=== PATIENT | male | born 1980 | race African-American/Black ===

== ENCOUNTER 2018-11-17 14:36 | Inpatient (IN) | payer SELFPAY ==
[~2018-11-17] VITALS: Ht 190.5 cm; Wt 74.8 kg
[2018-11-17] MEDS ORDERED: IV NORMAL SALINE 1000ML BAG 1,000 ML IV ONE (15:00)
[2018-11-17 15:12] LABS: BASO % 0 % (0-3); EOS # 0.2 x10^3/uL (0.0-0.7); EOS % 3 % (0-3); HEMATOCRIT 45.9 % (39.0-53.0); HEMOGLOBIN 15.8 g/dL (13.0-17.5); LYMPH # 2.8 x10^3/uL (1.0-4.8); LYMPH % 38 % (24-48); MEAN CORPUSCULAR HEMOGLOBIN 32 pg (25-35); MEAN CORPUSCULAR HGB CONC 35 g/dL (31-37); MEAN CORPUSCULAR VOLUME 93 fL (79-100); MONO # 0.7 x10^3/uL (0.0-1.1); MONO % 9 % (0-9); NEUT # 3.6 x10^3/uL (1.8-7.7); NEUT % 50 % (31-73); PLATELET COUNT 287 x10^3/uL (140-400); RED BLOOD COUNT 4.92 x10^6/uL (4.30-5.70); RED CELL DISTRIBUTION WIDTH 13.9 % (11.5-14.5); WHITE BLOOD COUNT 7.3 x10^3/uL (4.0-11.0)
--- NOTE | 2018-11-17 15:14 | PHYS DOC ---
Adult General Chief Complaint Chief Complaint: WEAKNESS/GENERALIZED HPI HPI Patient is a 37 year old male that presents with multiple complaints. The patient states he has been having left arm numbness when he wakes up in the morning after laying on his arm when he sleeps. The patient also states he's been having some left leg weakness intermittently for last month. The patient states he also had a syncopal episode on Tuesday after he worked a 12 hour shift and he was driving home that morning. Denies any pain at this time. Review of Systems Review of Systems Constitutional: Denies fever or chills [] Eyes: Denies change in visual acuity, redness, or eye pain [] HENT: Denies nasal congestion or sore throat [] Respiratory: Denies cough or shortness of breath [] Cardiovascular: No additional information not addressed in HPI [] GI: Denies abdominal pain, nausea, vomiting, bloody stools or diarrhea [] : Denies dysuria or hematuria [] Musculoskeletal: Denies back pain or joint pain [] Integument: Denies rash or skin lesions [] Neurologic: Reports Left leg weakness. Denies headache, focal weakness or sensory changes [] Endocrine: Denies polyuria or polydipsia [] Complete systems were reviewed and found to be within normal limits, except as documented in this note. Current Medications Current Medications Current Medications Medications (Trade) Dose Ordered Sig/Isabella Start Time Stop Time Status Last Admin Dose Admin Sodium Chloride 1,000 ml @ 1,000 mls/hr 1X ONCE 11/17/18 15:00 11/17/18 15:59 DC 11/17/18 15:41 1,000 MLS/HR Allergies Allergies Allergies Coded Allergies Type Severity Reaction Last Updated Verified No Known Drug Allergies 11/17/18 No Physical Exam Physical Exam Constitutional: Well developed, well nourished, no acute distress, non-toxic appearance. [] HENT: Normocephalic, atraumatic, bilateral external ears normal, oropharynx moist, no oral exudates, nose normal. [] Eyes: PERRLA, EOMI, conjunctiva normal, no discharge. [] Neck: Normal range of motion, no tenderness, supple, no stridor. [] Cardiovascular:Heart rate regular rhythm, no murmur [] Lungs & Thorax: Bilateral breath sounds clear to auscultation [] Abdomen: Bowel sounds normal, soft, no tenderness, no masses, no pulsatile mass es. [] Skin: Warm, dry, no erythema, no rash. [] Back: No tenderness, no CVA tenderness. [] Extremities: No tenderness, no cyanosis, no clubbing, ROM intact, no edema. [] Neurologic: Alert and oriented X 3, normal motor function, normal sensory function, no focal deficits noted. [] Psychologic: Affect normal, judgement normal, mood normal. [] Current Patient Data Vital Signs Vital Signs Date Time Temp Pulse Resp B/P (MAP) Pulse Ox O2 Delivery O2 Flow Rate FiO2 11/17/18 15:43 61 12 99 Lab Values Laboratory Tests Test 11/17/18 15:03 White Blood Count 7.3 x10^3/uL (4.0-11.0) Red Blood Count 4.92 x10^6/uL (4.30-5.70) Hemoglobin 15.8 g/dL (13.0-17.5) Hematocrit 45.9 % (39.0-53.0) Mean Corpuscular Volume 93 fL (79-100) Mean Corpuscular Hemoglobin 32 pg (25-35) Mean Corpuscular Hemoglobin Concent 35 g/dL (31-37) Red Cell Distribution Width 13.9 % (11.5-14.5) Platelet Count 287 x10^3/uL (140-400) Neutrophils (%) (Auto) 50 % (31-73) Lymphocytes (%) (Auto) 38 % (24-48) Monocytes (%) (Auto) 9 % (0-9) Eosinophils (%) (Auto) 3 % (0-3) Basophils (%) (Auto) 0 % (0-3) Neutrophils # (Auto) 3.6 x10^3/uL (1.8-7.7) Lymphocytes # (Auto) 2.8 x10^3/uL (1.0-4.8) Monocytes # (Auto) 0.7 x10^3/uL (0.0-1.1) Eosinophils # (Auto) 0.2 x10^3/uL (0.0-0.7) Basophils # (Auto) 0.0 x10^3/uL (0.0-0.2) Sodium Level 138 mmol/L (136-145) Potassium Level 4.4 mmol/L (3.5-5.1) Chloride Level 102 mmol/L (98-107) Carbon Dioxide Level 29 mmol/L (21-32) Anion Gap 7 (6-14) Blood Urea Nitrogen 10 mg/dL (8-26) Creatinine 1.1 mg/dL (0.7-1.3) Estimated GFR (Cockcroft-Gault) 90.2 BUN/Creatinine Ratio 9 (6-20) Glucose Level 94 mg/dL (70-99) Calcium Level 10.1 mg/dL (8.5-10.1) Magnesium Level 1.9 mg/dL (1.8-2.4) Total Bilirubin 0.4 mg/dL (0.2-1.0) Aspartate Amino Transferase (AST) 20 U/L (15-37) Alanine Aminotransferase (ALT) 28 U/L (16-63) Alkaline Phosphatase 91 U/L (46-116) Creatine Kinase 285 U/L (39-308) Troponin I Quantitative < 0.017 ng/mL (0.000-0.055) Total Protein 7.9 g/dL (6.4-8.2) Albumin 4.4 g/dL (3.4-5.0) Albumin/Globulin Ratio 1.3 (1.0-1.7) Laboratory Tests 11/17/18 15:03 Laboratory Tests 11/17/18 15:03 EKG EKG EKG interpreted by Dr. Alcantara Sinus with rate of 75, V2 has possible Type 2 Brugada, Mild ST segment changes in V3, V4 does not appear by EKG and clinical exam to be a STEMI. [] Radiology/Procedures Radiology/Procedures [][facility] [address] [place] [address] IMAGING REPORT Signed PATIENT: LESLIE SUTTON ACCOUNT: [id number] : 1980 LOCATION: ER AGE: 37 SEX: M EXAM STATUS: REG ER ORD. PHYSICIAN: FREDRICK MEAD APRN REASON: syncopal episode blood and ekg 3:15 PROCEDURE: CHEST PA & LATERAL Chest, PA and Lateral: Technique: PA and lateral views of the chest were obtained. History: Syncope. Comparison: None. Findings: The heart and pulmonary vasculature appear within normal limits. The lungs are clear. The pleural margins are clear. Impression: No acute chest process is seen. Electronically signed by: Guillermo Casillas MD (11/17/2018 3:51 PM) [facility] DICTATED and SIGNED BY: GUILLERMO CASILLAS MD DATE: 11/17/18 1551 Course & Med Decision Making Course & Med Decision Making Pertinent Labs and Imaging studies reviewed. (See chart for details) Do not appreciate any leg or arm weakness on my exam. Will work up for syncopal episode. Labs, imaging unremarkable. Concern about possible Brugada syndrome in V2. Discussed with Dr. Gomez who accepts admission for further workup. Will consult cards. Dragon Disclaimer Dragon Disclaimer This electronic medical record was generated, in whole or in part, using a voice recognition dictation system. Departure Departure Impression: Primary Impression: Syncope Additional Impression: Abnormal EKG Disposition: ADMITTED INPATIENT Admitting Physician: MARTELL Condition: STABLE Referrals: NO PCP (PCP) NIHSS Stroke Scale NIH Stroke Scale: NIH Stroke Scale Response (Comments) Value Level of Consciousness: 0 Alert/Responsive 0 LOC Questions: 0 Answers both correctly 0 LOC Commands: 0 Performs both tasks 0 Best Gaze: 0 Normal 0 Visual: 0 No visual loss 0 Facial Palsy: 0 Normal, symmetrical 0 Motor - Left Arm 0 No drift 0 Motor - Right Arm 0 No drift 0 Motor - Left Leg 0 No drift 0 Motor: Right Leg 0 No drift 0 Limb Ataxia: 0 Absent 0 Sensory: 0 No loss 0 Best Language: 0 Normal 0 Dysathria: 0 Normal 0 Extinction and Inattention: 0 Normal 0 Total 0 Problem Qualifiers Primary Impression: Syncope Syncope type: unspecified Qualified Codes: R55 - Syncope and collapse FREDRICK MEAD APRN Nov 17, 2018 15:14
[2018-11-17 15:20] LABS: CALCIUM 10.1 mg/dL (8.5-10.1); CREATININE 1.1 mg/dL (0.7-1.3); GFR 90.2; POTASSIUM 4.4 mmol/L (3.5-5.1)
[2018-11-17 15:27] LABS: ALBUMIN 4.4 g/dL (3.4-5.0); ALBUMIN/GLOBULIN RATIO 1.3 (1.0-1.7); TOTAL BILIRUBIN 0.4 mg/dL (0.2-1.0); TOTAL PROTEIN 7.9 g/dL (6.4-8.2)
--- NOTE | 2018-11-17 15:45 | EKG ---
[facility] [address] [place] [address] Test Date: 2018-11-17 Test Time: 15:14:13 Pat Name: LESLIE SUTTON Department: Room: Gender: M [employer] Supervisor: : 1980 Requested By: FREDRICK MEAD Order Number: [id number] Reading MD: Bryan Villeda MD Measurements Intervals [place] Rate: 74 P: 34 NM: 138 QRS: 24 QRSD: 76 T: 51 QT: 358 QTc: 402 Interpretive Statements SINUS RHYTHM Electronically Signed On 11-28-2018 9:42:07 CDT by Bryan Villeda MD
--- NOTE | 2018-11-17 15:54 | RAD ---
Chest, PA and Lateral: Technique: PA and lateral views of the chest were obtained. History: Syncope. Comparison: None. Findings: The heart and pulmonary vasculature appear within normal limits. The lungs are clear. The pleural margins are clear. Impression: No acute chest process is seen. Electronically signed by: Guillermo Casillas MD (11/17/2018 3:51 PM) [facility]
[2018-11-17] MEDS ORDERED: ONDANSETRON PF 4 MG/2 ML VIAL. IV PRN (16:30)
[2018-11-17] MEDS ORDERED: MORPHINE SULFATE 2 MG/ML VIAL. IV PRN (16:30)
[2018-11-17 19:13] VITALS: BP 120/87
--- NOTE | 2018-11-17 19:19 | PDOC1 ---
History and Physical Date of Admission Date of Admission DATE: 11/17/18 TIME: 19:14 History of Present Illness History of Present Illness Mr. Bashir, is a 37 year old male complains of weakness and left arm numbness when he wakes up in the morning after laying on his arm when he sleeps. He also reported that he passed out last week, and has beeen having some left leg weakness intermittently for last month . Denies any pain at this time. 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 Social History Smoke: No ALCOHOL: occassional Drugs: None Current Problem List Problem List Problems Medical Problems: (1) Abnormal EKG Status: Acute (2) Syncope Status: Acute Current Medications Current Medications Current Medications Sodium Chloride 1,000 ml @ 1,000 mls/hr 1X ONCE IV Last administered on 11/17/18at 15:41; Start 11/17/18 at 15:00; Stop 11/17/18 at 15:59; Status DC Ondansetron HCl (Zofran) 4 mg PRN Q8HRS PRN IV NAUSEA/VOMITING; Start 11/17/18 at 16:30; Stop 11/18/18 at 16:29 Morphine Sulfate (Morphine Sulfate) 2 mg PRN Q2HR PRN IV PAIN; Start 11/17/18 at 16:30; Stop 11/18/18 at 16:29 Allergies Allergies: Coded Allergies: No Known Drug Allergies (Unverified , 11/17/18) Physical Exam General: Alert, Cooperative, Other (lethargic) HEENT: Atraumatic, PERRLA Lungs: Clear to auscultation Heart: S1S2 Abdomen: Normal bowel sounds, Soft Extremities: No cyanosis, No edema, Normal pulses Skin: No rashes Neuro: Normal speech, Sensation intact Psych/Mental Status: Other (withdrawn, flat affect, slow to respond) Vitals Vitals Vital Signs Date Time Temp Pulse Resp B/P (MAP) Pulse Ox O2 Delivery O2 Flow Rate FiO2 11/17/18 16:38 62 16 99 11/17/18 14:55 97.8 135/83 (100) Room Air 97.8 Labs Labs Laboratory Tests Test 11/17/18 15:03 White Blood Count 7.3 x10^3/uL (4.0-11.0) Red Blood Count 4.92 x10^6/uL (4.30-5.70) Hemoglobin 15.8 g/dL (13.0-17.5) Hematocrit 45.9 % (39.0-53.0) Mean Corpuscular Volume 93 fL (79-100) Mean Corpuscular Hemoglobin 32 pg (25-35) Mean Corpuscular Hemoglobin Concent 35 g/dL (31-37) Red Cell Distribution Width 13.9 % (11.5-14.5) Platelet Count 287 x10^3/uL (140-400) Neutrophils (%) (Auto) 50 % (31-73) Lymphocytes (%) (Auto) 38 % (24-48) Monocytes (%) (Auto) 9 % (0-9) Eosinophils (%) (Auto) 3 % (0-3) Basophils (%) (Auto) 0 % (0-3) Neutrophils # (Auto) 3.6 x10^3/uL (1.8-7.7) Lymphocytes # (Auto) 2.8 x10^3/uL (1.0-4.8) Monocytes # (Auto) 0.7 x10^3/uL (0.0-1.1) Eosinophils # (Auto) 0.2 x10^3/uL (0.0-0.7) Basophils # (Auto) 0.0 x10^3/uL (0.0-0.2) Sodium Level 138 mmol/L (136-145) Potassium Level 4.4 mmol/L (3.5-5.1) Chloride Level 102 mmol/L (98-107) Carbon Dioxide Level 29 mmol/L (21-32) Anion Gap 7 (6-14) Blood Urea Nitrogen 10 mg/dL (8-26) Creatinine 1.1 mg/dL (0.7-1.3) Estimated GFR (Cockcroft-Gault) 90.2 BUN/Creatinine Ratio 9 (6-20) Glucose Level 94 mg/dL (70-99) Calcium Level 10.1 mg/dL (8.5-10.1) Magnesium Level 1.9 mg/dL (1.8-2.4) Total Bilirubin 0.4 mg/dL (0.2-1.0) Aspartate Amino Transf (AST/SGOT) 20 U/L (15-37) Alanine Aminotransferase (ALT/SGPT) 28 U/L (16-63) Alkaline Phosphatase 91 U/L (46-116) Creatine Kinase 285 U/L (39-308) Troponin I Quantitative < 0.017 ng/mL (0.000-0.055) Total Protein 7.9 g/dL (6.4-8.2) Albumin 4.4 g/dL (3.4-5.0) Albumin/Globulin Ratio 1.3 (1.0-1.7) Laboratory Tests Test 11/17/18 15:03 White Blood Count 7.3 x10^3/uL (4.0-11.0) Red Blood Count 4.92 x10^6/uL (4.30-5.70) Hemoglobin 15.8 g/dL (13.0-17.5) Hematocrit 45.9 % (39.0-53.0) Mean Corpuscular Volume 93 fL (79-100) Mean Corpuscular Hemoglobin 32 pg (25-35) Mean Corpuscular Hemoglobin Concent 35 g/dL (31-37) Red Cell Distribution Width 13.9 % (11.5-14.5) Platelet Count 287 x10^3/uL (140-400) Neutrophils (%) (Auto) 50 % (31-73) Lymphocytes (%) (Auto) 38 % (24-48) Monocytes (%) (Auto) 9 % (0-9) Eosinophils (%) (Auto) 3 % (0-3) Basophils (%) (Auto) 0 % (0-3) Neutrophils # (Auto) 3.6 x10^3/uL (1.8-7.7) Lymphocytes # (Auto) 2.8 x10^3/uL (1.0-4.8) Monocytes # (Auto) 0.7 x10^3/uL (0.0-1.1) Eosinophils # (Auto) 0.2 x10^3/uL (0.0-0.7) Basophils # (Auto) 0.0 x10^3/uL (0.0-0.2) Sodium Level 138 mmol/L (136-145) Potassium Level 4.4 mmol/L (3.5-5.1) Chloride Level 102 mmol/L (98-107) Carbon Dioxide Level 29 mmol/L (21-32) Anion Gap 7 (6-14) Blood Urea Nitrogen 10 mg/dL (8-26) Creatinine 1.1 mg/dL (0.7-1.3) Estimated GFR (Cockcroft-Gault) 90.2 BUN/Creatinine Ratio 9 (6-20) Glucose Level 94 mg/dL (70-99) Calcium Level 10.1 mg/dL (8.5-10.1) Magnesium Level 1.9 mg/dL (1.8-2.4) Total Bilirubin 0.4 mg/dL (0.2-1.0) Aspartate Amino Transf (AST/SGOT) 20 U/L (15-37) Alanine Aminotransferase (ALT/SGPT) 28 U/L (16-63) Alkaline Phosphatase 91 U/L (46-116) Creatine Kinase 285 U/L (39-308) Troponin I Quantitative < 0.017 ng/mL (0.000-0.055) Total Protein 7.9 g/dL (6.4-8.2) Albumin 4.4 g/dL (3.4-5.0) Albumin/Globulin Ratio 1.3 (1.0-1.7) VTE Prophylaxis Ordered VTE Prophylaxis Devices: Yes VTE Pharmacological Prophylaxi: No Assessment/Plan Assessment/Plan syncope lethargy weakness withdrawn behavior history of schizophrenia abnormal EKG, likely early repol change. concern for Brugada syndrome labs excellent, admit obs for tele MEIR REN MD Nov 17, 2018 19:19
[2018-11-17] MEDS: ENOXAPARIN 40 MG/0.4 ML SYRINGE. SQ SCH (22:08)
[2018-11-17 23:44] VITALS: BP 110/62
[2018-11-18 03:29] VITALS: BP 98/58
[2018-11-18 07:59] VITALS: BP 116/67
--- NOTE | 2018-11-18 10:56 | PDOC ---
PROGRESS NOTES History of Present Illness History of Present Illness VTE Prophylaxis Ordered VTE Prophylaxis Devices: Yes VTE Pharmacological Prophylaxi: No Assessment/Plan syncope lethargy weakness withdrawn behavior history of schizophrenia abnormal EKG, likely early repol change. concern for Brugada syndrome plan admit tele cardiology consult 37 min pt exam, chart review, > 50% of time spent with exam, chart review, pt care coordination Vitals Vitals Vital Signs Date Time Temp Pulse Resp B/P (MAP) Pulse Ox O2 Delivery O2 Flow Rate FiO2 11/18/18 08:00 Room Air 11/18/18 07:59 98.1 63 18 116/67 (83) 97 98.1 Physical Exam General: Alert, Oriented X3, Cooperative, No acute distress, Other (lethargic) Heart: Regular rate, Normal S1 Lungs: Clear Abdomen: Normal bowel sounds, Soft, No tenderness Extremities: No cyanosis, No edema, Normal pulses Skin: No rashes Labs LABS Signed PATIENT: LESLIE SUTTON ACCOUNT: [id number] : 1980 LOCATION: ER AGE: 37 SEX: M EXAM STATUS: REG ER ORD. PHYSICIAN: FREDRICK MEAD APRN REASON: syncopal episode blood and ekg 3:15 PROCEDURE: CHEST PA & LATERAL Chest, PA and Lateral: Technique: PA and lateral views of the chest were obtained. History: Syncope. Comparison: None. Findings: The heart and pulmonary vasculature appear within normal limits. The lungs are clear. The pleural margins are clear. Impression: No acute chest process is seen. Electronically signed by: Guillermo Casillas MD (11/17/2018 3:51 PM) [facility] DICTATED and SIGNED BY: GUILLERMO CASILLAS MD DATE: 11/17/18 1551 Laboratory Tests Test 11/17/18 15:03 White Blood Count 7.3 x10^3/uL (4.0-11.0) Red Blood Count 4.92 x10^6/uL (4.30-5.70) Hemoglobin 15.8 g/dL (13.0-17.5) Hematocrit 45.9 % (39.0-53.0) Mean Corpuscular Volume 93 fL (79-100) Mean Corpuscular Hemoglobin 32 pg (25-35) Mean Corpuscular Hemoglobin Concent 35 g/dL (31-37) Red Cell Distribution Width 13.9 % (11.5-14.5) Platelet Count 287 x10^3/uL (140-400) Neutrophils (%) (Auto) 50 % (31-73) Lymphocytes (%) (Auto) 38 % (24-48) Monocytes (%) (Auto) 9 % (0-9) Eosinophils (%) (Auto) 3 % (0-3) Basophils (%) (Auto) 0 % (0-3) Neutrophils # (Auto) 3.6 x10^3/uL (1.8-7.7) Lymphocytes # (Auto) 2.8 x10^3/uL (1.0-4.8) Monocytes # (Auto) 0.7 x10^3/uL (0.0-1.1) Eosinophils # (Auto) 0.2 x10^3/uL (0.0-0.7) Basophils # (Auto) 0.0 x10^3/uL (0.0-0.2) Sodium Level 138 mmol/L (136-145) Potassium Level 4.4 mmol/L (3.5-5.1) Chloride Level 102 mmol/L (98-107) Carbon Dioxide Level 29 mmol/L (21-32) Anion Gap 7 (6-14) Blood Urea Nitrogen 10 mg/dL (8-26) Creatinine 1.1 mg/dL (0.7-1.3) Estimated GFR (Cockcroft-Gault) 90.2 BUN/Creatinine Ratio 9 (6-20) Glucose Level 94 mg/dL (70-99) Calcium Level 10.1 mg/dL (8.5-10.1) Magnesium Level 1.9 mg/dL (1.8-2.4) Total Bilirubin 0.4 mg/dL (0.2-1.0) Aspartate Amino Transf (AST/SGOT) 20 U/L (15-37) Alanine Aminotransferase (ALT/SGPT) 28 U/L (16-63) Alkaline Phosphatase 91 U/L (46-116) Creatine Kinase 285 U/L (39-308) Troponin I Quantitative < 0.017 ng/mL (0.000-0.055) Total Protein 7.9 g/dL (6.4-8.2) Albumin 4.4 g/dL (3.4-5.0) Albumin/Globulin Ratio 1.3 (1.0-1.7) Assessment and Plan Assessmemt and Plan Problems Medical Problems: (1) Abnormal EKG Status: Acute (2) Syncope Status: Acute Comment Review of Relevant I have reviewed the following items geovany (where applicable) has been applied. Labs Laboratory Tests Test 11/17/18 15:03 White Blood Count 7.3 x10^3/uL (4.0-11.0) Red Blood Count 4.92 x10^6/uL (4.30-5.70) Hemoglobin 15.8 g/dL (13.0-17.5) Hematocrit 45.9 % (39.0-53.0) Mean Corpuscular Volume 93 fL (79-100) Mean Corpuscular Hemoglobin 32 pg (25-35) Mean Corpuscular Hemoglobin Concent 35 g/dL (31-37) Red Cell Distribution Width 13.9 % (11.5-14.5) Platelet Count 287 x10^3/uL (140-400) Neutrophils (%) (Auto) 50 % (31-73) Lymphocytes (%) (Auto) 38 % (24-48) Monocytes (%) (Auto) 9 % (0-9) Eosinophils (%) (Auto) 3 % (0-3) Basophils (%) (Auto) 0 % (0-3) Neutrophils # (Auto) 3.6 x10^3/uL (1.8-7.7) Lymphocytes # (Auto) 2.8 x10^3/uL (1.0-4.8) Monocytes # (Auto) 0.7 x10^3/uL (0.0-1.1) Eosinophils # (Auto) 0.2 x10^3/uL (0.0-0.7) Basophils # (Auto) 0.0 x10^3/uL (0.0-0.2) Sodium Level 138 mmol/L (136-145) Potassium Level 4.4 mmol/L (3.5-5.1) Chloride Level 102 mmol/L (98-107) Carbon Dioxide Level 29 mmol/L (21-32) Anion Gap 7 (6-14) Blood Urea Nitrogen 10 mg/dL (8-26) Creatinine 1.1 mg/dL (0.7-1.3) Estimated GFR (Cockcroft-Gault) 90.2 BUN/Creatinine Ratio 9 (6-20) Glucose Level 94 mg/dL (70-99) Calcium Level 10.1 mg/dL (8.5-10.1) Magnesium Level 1.9 mg/dL (1.8-2.4) Total Bilirubin 0.4 mg/dL (0.2-1.0) Aspartate Amino Transf (AST/SGOT) 20 U/L (15-37) Alanine Aminotransferase (ALT/SGPT) 28 U/L (16-63) Alkaline Phosphatase 91 U/L (46-116) Creatine Kinase 285 U/L (39-308) Troponin I Quantitative < 0.017 ng/mL (0.000-0.055) Total Protein 7.9 g/dL (6.4-8.2) Albumin 4.4 g/dL (3.4-5.0) Albumin/Globulin Ratio 1.3 (1.0-1.7) Laboratory Tests Test 11/17/18 15:03 White Blood Count 7.3 x10^3/uL (4.0-11.0) Red Blood Count 4.92 x10^6/uL (4.30-5.70) Hemoglobin 15.8 g/dL (13.0-17.5) Hematocrit 45.9 % (39.0-53.0) Mean Corpuscular Volume 93 fL (79-100) Mean Corpuscular Hemoglobin 32 pg (25-35) Mean Corpuscular Hemoglobin Concent 35 g/dL (31-37) Red Cell Distribution Width 13.9 % (11.5-14.5) Platelet Count 287 x10^3/uL (140-400) Neutrophils (%) (Auto) 50 % (31-73) Lymphocytes (%) (Auto) 38 % (24-48) Monocytes (%) (Auto) 9 % (0-9) Eosinophils (%) (Auto) 3 % (0-3) Basophils (%) (Auto) 0 % (0-3) Neutrophils # (Auto) 3.6 x10^3/uL (1.8-7.7) Lymphocytes # (Auto) 2.8 x10^3/uL (1.0-4.8) Monocytes # (Auto) 0.7 x10^3/uL (0.0-1.1) Eosinophils # (Auto) 0.2 x10^3/uL (0.0-0.7) Basophils # (Auto) 0.0 x10^3/uL (0.0-0.2) Sodium Level 138 mmol/L (136-145) Potassium Level 4.4 mmol/L (3.5-5.1) Chloride Level 102 mmol/L (98-107) Carbon Dioxide Level 29 mmol/L (21-32) Anion Gap 7 (6-14) Blood Urea Nitrogen 10 mg/dL (8-26) Creatinine 1.1 mg/dL (0.7-1.3) Estimated GFR (Cockcroft-Gault) 90.2 BUN/Creatinine Ratio 9 (6-20) Glucose Level 94 mg/dL (70-99) Calcium Level 10.1 mg/dL (8.5-10.1) Magnesium Level 1.9 mg/dL (1.8-2.4) Total Bilirubin 0.4 mg/dL (0.2-1.0) Aspartate Amino Transf (AST/SGOT) 20 U/L (15-37) Alanine Aminotransferase (ALT/SGPT) 28 U/L (16-63) Alkaline Phosphatase 91 U/L (46-116) Creatine Kinase 285 U/L (39-308) Troponin I Quantitative < 0.017 ng/mL (0.000-0.055) Total Protein 7.9 g/dL (6.4-8.2) Albumin 4.4 g/dL (3.4-5.0) Albumin/Globulin Ratio 1.3 (1.0-1.7) Medications Current Medications Sodium Chloride 1,000 ml @ 1,000 mls/hr 1X ONCE IV Last administered on 11/17/18at 15:41; Start 11/17/18 at 15:00; Stop 11/17/18 at 15:59; Status DC Ondansetron HCl (Zofran) 4 mg PRN Q8HRS PRN IV NAUSEA/VOMITING; Start 11/17/18 at 16:30; Stop 11/18/18 at 16:29 Morphine Sulfate (Morphine Sulfate) 2 mg PRN Q2HR PRN IV PAIN; Start 11/17/18 at 16:30; Stop 11/18/18 at 16:29 Enoxaparin Sodium (Lovenox Per Pharmacy Prophylaxis Dosing) 1 each PRN DAILY PRN MC SEE COMMENTS; Start 11/17/18 at 19:15 Enoxaparin Sodium (Lovenox 40mg Syringe) 40 mg Q24H SQ ; Start 11/17/18 at 21:00 Vitals/I & O Vital Sign - Last 24 Hours 11/17/18 11/17/18 11/17/18 11/17/18 14:55 15:43 16:38 18:10 Temp 97.8 97.8 Pulse 84 61 62 Resp 16 12 16 B/P (MAP) 135/83 (100) Pulse Ox 100 99 99 O2 Delivery Room Air Room Air 11/17/18 11/17/18 11/17/18 11/18/18 19:13 20:00 23:44 03:29 Temp 98.2 97.8 97.6 98.2 97.8 97.6 Pulse 70 66 59 Resp 20 20 18 B/P (MAP) 120/87 (98) 110/62 (78) 98/58 (71) Pulse Ox 99 97 99 O2 Delivery Room Air Room Air Room Air Room Air 11/18/18 11/18/18 07:59 08:00 Temp 98.1 98.1 Pulse 63 Resp 18 B/P (MAP) 116/67 (83) Pulse Ox 97 O2 Delivery Room Air Room Air Intake and Output 11/17/18 11/17/18 11/18/18 15:00 23:00 07:00 Intake Total 1450 ml 380 ml Output Total 450 ml Balance 1000 ml 380 ml MARTHA RUSH MD Nov 18, 2018 10:56
[2018-11-18 11:59] VITALS: BP 115/79
--- NOTE | 2018-11-18 15:32 | PDOC2 ---
CONSULT Date of Consult Date of Consult DATE: 11/18/18 TIME: 15:26 Reason for Consult Reason for Consult: Syncope Referring Physician Referring Physician: Dr. Gomez Identification/Chief Complaint Chief Complaint Weakness Source Source: Chart review, Patient History of Present Illness Reason for Visit: The patient is a 37-year-old male who was admitted yesterday through the emergency room for generalized weakness. Patient's symptoms included left arm numbness and left leg weakness. He also reported an episode of syncope after working a full 10 hour day. There are also reports of a 30 pound weight loss over the past year. Overnight his rhythm has remained stable. His EKG shows a sinus rhythm with nonspecific anterior ST elevations and an incomplete right bundle ruddy block. This is not classic for Brugada syndrome. There is no reported family history of sudden . At the present time the patient reports feeling better. He denies chest pain or shortness of breath. Past Medical History Cardiovascular: HTN Psych: Other (possible schizophrenia) Past Surgical History Past Surgical History: No pertinent history Family History Family History: Hypertension Social History No ALCOHOL: occassional Drugs: None Current Problem List Problem List Problems Medical Problems: (1) Abnormal EKG Status: Acute (2) Syncope Status: Acute Current Medications Current Medications Current Medications Sodium Chloride 1,000 ml @ 1,000 mls/hr 1X ONCE IV Last administered on 11/17/18at 15:41; Start 11/17/18 at 15:00; Stop 11/17/18 at 15:59; Status DC Ondansetron HCl (Zofran) 4 mg PRN Q8HRS PRN IV NAUSEA/VOMITING; Start 11/17/18 at 16:30; Stop 11/18/18 at 16:29 Morphine Sulfate (Morphine Sulfate) 2 mg PRN Q2HR PRN IV PAIN; Start 11/17/18 at 16:30; Stop 11/18/18 at 16:29 Enoxaparin Sodium (Lovenox Per Pharmacy Prophylaxis Dosing) 1 each PRN DAILY PRN [facility] SEE COMMENTS; Start 11/17/18 at 19:15 Enoxaparin Sodium (Lovenox 40mg Syringe) 40 mg Q24H SQ ; Start 11/17/18 at 21:00 Allergies Allergies: Coded Allergies: No Known Drug Allergies (Unverified , 11/17/18) ROS General: YES: Fatigue, Malaise Cardiovascular: yes Other (syncope) Physical Exam General: No acute distress HEENT: Atraumatic Lungs: Clear to auscultation Heart: Regular rate Abdomen: Normal bowel sounds Vitals VITALS Vital Signs Date Time Temp Pulse Resp B/P (MAP) Pulse Ox O2 Delivery O2 Flow Rate FiO2 11/18/18 11:59 97.8 64 18 115/79 (91) 99 Room Air 97.8 Labs Labs Laboratory Tests Test 11/17/18 15:03 White Blood Count 7.3 x10^3/uL (4.0-11.0) Red Blood Count 4.92 x10^6/uL (4.30-5.70) Hemoglobin 15.8 g/dL (13.0-17.5) Hematocrit 45.9 % (39.0-53.0) Mean Corpuscular Volume 93 fL (79-100) Mean Corpuscular Hemoglobin 32 pg (25-35) Mean Corpuscular Hemoglobin Concent 35 g/dL (31-37) Red Cell Distribution Width 13.9 % (11.5-14.5) Platelet Count 287 x10^3/uL (140-400) Neutrophils (%) (Auto) 50 % (31-73) Lymphocytes (%) (Auto) 38 % (24-48) Monocytes (%) (Auto) 9 % (0-9) Eosinophils (%) (Auto) 3 % (0-3) Basophils (%) (Auto) 0 % (0-3) Neutrophils # (Auto) 3.6 x10^3/uL (1.8-7.7) Lymphocytes # (Auto) 2.8 x10^3/uL (1.0-4.8) Monocytes # (Auto) 0.7 x10^3/uL (0.0-1.1) Eosinophils # (Auto) 0.2 x10^3/uL (0.0-0.7) Basophils # (Auto) 0.0 x10^3/uL (0.0-0.2) Sodium Level 138 mmol/L (136-145) Potassium Level 4.4 mmol/L (3.5-5.1) Chloride Level 102 mmol/L (98-107) Carbon Dioxide Level 29 mmol/L (21-32) Anion Gap 7 (6-14) Blood Urea Nitrogen 10 mg/dL (8-26) Creatinine 1.1 mg/dL (0.7-1.3) Estimated GFR (Cockcroft-Gault) 90.2 BUN/Creatinine Ratio 9 (6-20) Glucose Level 94 mg/dL (70-99) Calcium Level 10.1 mg/dL (8.5-10.1) Magnesium Level 1.9 mg/dL (1.8-2.4) Total Bilirubin 0.4 mg/dL (0.2-1.0) Aspartate Amino Transf (AST/SGOT) 20 U/L (15-37) Alanine Aminotransferase (ALT/SGPT) 28 U/L (16-63) Alkaline Phosphatase 91 U/L (46-116) Creatine Kinase 285 U/L (39-308) Troponin I Quantitative < 0.017 ng/mL (0.000-0.055) Total Protein 7.9 g/dL (6.4-8.2) Albumin 4.4 g/dL (3.4-5.0) Albumin/Globulin Ratio 1.3 (1.0-1.7) Images Images Chest X-ray with no acute process. Assessment/Plan Assessment/Plan 1. Generalized weakness. Patient is feeling better at this time. Workup is in progress. 2. Syncope. Rhythm has been stable overnight. EKG shows a sinus rhythm with incomplete right bundle branch block and ST segment changes anteriorly. It is not classic for Brugada syndrome. At this time will continue on monitoring. We'll check an echocardiogram. The patient will require outpatient follow-up. 3. Possible history of schizophrenia. Thank you for allowing us to participate in the care of your patient. AMBER CORTEZ MD Nov 18, 2018 15:32
[2018-11-18 15:59] VITALS: BP 109/73
[2018-11-18 19:46] VITALS: BP 119/65
[2018-11-18] MEDS: ENOXAPARIN 40 MG/0.4 ML SYRINGE. SQ SCH (20:47)
[2018-11-18 23:28] VITALS: BP 112/69
[2018-11-19] VITALS (7 sets, daily range): BP systolic 108–125; BP diastolic 65–72
[2018-11-19 05:33] LABS: CHOLESTEROL/HDL RATIO 3.1
--- NOTE | 2018-11-19 08:48 | PDOC ---
PROGRESS NOTES History of Present Illness History of Present Illness VTE Prophylaxis Ordered VTE Prophylaxis Devices: Yes VTE Pharmacological Prophylaxi: No Assessment/Plan syncope lethargy weakness withdrawn behavior history of schizophrenia abnormal EKG, likely early repol change. concern for Brugada syndrome plan admit tele cardiology consult 37 min pt exam, chart review, > 50% of time spent with exam, chart review, pt care coordination Vitals Vitals Vital Signs Date Time Temp Pulse Resp B/P (MAP) Pulse Ox O2 Delivery O2 Flow Rate FiO2 11/19/18 03:23 97.8 57 20 109/71 (84) 99 Room Air 97.8 Physical Exam General: No acute distress Heart: Regular rate Lungs: Clear Abdomen: Normal bowel sounds Extremities: No cyanosis, No edema, Normal pulses Skin: No rashes Labs LABS Laboratory Tests Test 11/19/18 04:00 11/19/18 04:30 Thyroid Stimulating Hormone (TSH) 1.206 uIU/mL (0.358-3.74) Triglycerides Level 66 mg/dL (0-150) Cholesterol Level 224 mg/dL (0-200) LDL Cholesterol, Calculated 138 mg/dL (0-100) VLDL Cholesterol, Calculated 13 mg/dL (0-40) Non-HDL Cholesterol Calculated 151 mg/dL (0-129) HDL Cholesterol 73 mg/dL (40-60) Cholesterol/HDL Ratio 3.1 Assessment and Plan Assessmemt and Plan Problems Medical Problems: (1) Abnormal EKG Status: Acute (2) Syncope Status: Acute Comment Review of Relevant I have reviewed the following items geovany (where applicable) has been applied. Labs Laboratory Tests Test 11/17/18 15:03 11/19/18 04:00 11/19/18 04:30 White Blood Count 7.3 x10^3/uL (4.0-11.0) Red Blood Count 4.92 x10^6/uL (4.30-5.70) Hemoglobin 15.8 g/dL (13.0-17.5) Hematocrit 45.9 % (39.0-53.0) Mean Corpuscular Volume 93 fL (79-100) Mean Corpuscular Hemoglobin 32 pg (25-35) Mean Corpuscular Hemoglobin Concent 35 g/dL (31-37) Red Cell Distribution Width 13.9 % (11.5-14.5) Platelet Count 287 x10^3/uL (140-400) Neutrophils (%) (Auto) 50 % (31-73) Lymphocytes (%) (Auto) 38 % (24-48) Monocytes (%) (Auto) 9 % (0-9) Eosinophils (%) (Auto) 3 % (0-3) Basophils (%) (Auto) 0 % (0-3) Neutrophils # (Auto) 3.6 x10^3/uL (1.8-7.7) Lymphocytes # (Auto) 2.8 x10^3/uL (1.0-4.8) Monocytes # (Auto) 0.7 x10^3/uL (0.0-1.1) Eosinophils # (Auto) 0.2 x10^3/uL (0.0-0.7) Basophils # (Auto) 0.0 x10^3/uL (0.0-0.2) Sodium Level 138 mmol/L (136-145) Potassium Level 4.4 mmol/L (3.5-5.1) Chloride Level 102 mmol/L (98-107) Carbon Dioxide Level 29 mmol/L (21-32) Anion Gap 7 (6-14) Blood Urea Nitrogen 10 mg/dL (8-26) Creatinine 1.1 mg/dL (0.7-1.3) Estimated GFR (Cockcroft-Gault) 90.2 BUN/Creatinine Ratio 9 (6-20) Glucose Level 94 mg/dL (70-99) Calcium Level 10.1 mg/dL (8.5-10.1) Magnesium Level 1.9 mg/dL (1.8-2.4) Total Bilirubin 0.4 mg/dL (0.2-1.0) Aspartate Amino Transf (AST/SGOT) 20 U/L (15-37) Alanine Aminotransferase (ALT/SGPT) 28 U/L (16-63) Alkaline Phosphatase 91 U/L (46-116) Creatine Kinase 285 U/L (39-308) Troponin I Quantitative < 0.017 ng/mL (0.000-0.055) Total Protein 7.9 g/dL (6.4-8.2) Albumin 4.4 g/dL (3.4-5.0) Albumin/Globulin Ratio 1.3 (1.0-1.7) Thyroid Stimulating Hormone (TSH) 1.206 uIU/mL (0.358-3.74) Triglycerides Level 66 mg/dL (0-150) Cholesterol Level 224 mg/dL (0-200) LDL Cholesterol, Calculated 138 mg/dL (0-100) VLDL Cholesterol, Calculated 13 mg/dL (0-40) Non-HDL Cholesterol Calculated 151 mg/dL (0-129) HDL Cholesterol 73 mg/dL (40-60) Cholesterol/HDL Ratio 3.1 Laboratory Tests Test 11/19/18 04:00 11/19/18 04:30 Thyroid Stimulating Hormone (TSH) 1.206 uIU/mL (0.358-3.74) Triglycerides Level 66 mg/dL (0-150) Cholesterol Level 224 mg/dL (0-200) LDL Cholesterol, Calculated 138 mg/dL (0-100) VLDL Cholesterol, Calculated 13 mg/dL (0-40) Non-HDL Cholesterol Calculated 151 mg/dL (0-129) HDL Cholesterol 73 mg/dL (40-60) Cholesterol/HDL Ratio 3.1 Medications Current Medications Sodium Chloride 1,000 ml @ 1,000 mls/hr 1X ONCE IV Last administered on 11/17/18at 15:41; Start 11/17/18 at 15:00; Stop 11/17/18 at 15:59; Status DC Ondansetron HCl (Zofran) 4 mg PRN Q8HRS PRN IV NAUSEA/VOMITING; Start 11/17/18 at 16:30; Stop 11/18/18 at 16:29; Status DC Morphine Sulfate (Morphine Sulfate) 2 mg PRN Q2HR PRN IV PAIN; Start 11/17/18 at 16:30; Stop 11/18/18 at 16:29; Status DC Enoxaparin Sodium (Lovenox Per Pharmacy Prophylaxis Dosing) 1 each PRN DAILY PRN [facility] SEE COMMENTS; Start 11/17/18 at 19:15 Enoxaparin Sodium (Lovenox 40mg Syringe) 40 mg Q24H SQ Last administered on 11/18/18at 20:47; Start 11/17/18 at 21:00 Nicotine (Nicoderm Cq 21mg) 1 patch DAILY TD ; Start 11/19/18 at 09:00; Status UNV Vitals/I & O Vital Sign - Last 24 Hours 11/18/18 11/18/18 11/18/18 11/18/18 11:59 15:59 19:46 20:00 Temp 97.8 98.0 98.0 97.8 98.0 98.0 Pulse 64 71 65 Resp 18 18 20 B/P (MAP) 115/79 (91) 109/73 (85) 119/65 (83) Pulse Ox 99 99 98 O2 Delivery Room Air Room Air Room Air Room Air 11/18/18 11/19/18 23:28 03:23 Temp 97.8 97.8 97.8 97.8 Pulse 64 57 Resp 20 20 B/P (MAP) 112/69 (83) 109/71 (84) Pulse Ox 99 99 O2 Delivery Room Air Room Air Intake and Output 11/18/18 11/18/18 11/19/18 15:00 23:00 07:00 Intake Total 200 ml 0 ml 0 ml Balance 200 ml 0 ml 0 ml MARTHA RUSH MD Nov 19, 2018 08:48
[2018-11-19] MEDS: NICOTINE 21MG PATCH. TD SCH (09:06)
--- NOTE | 2018-11-19 17:58 | PDOC ---
PROGRESS NOTES Subjective Subjective Patient seen and examined Objective Objective Vital Signs Date Time Temp Pulse Resp B/P (MAP) Pulse Ox O2 Delivery O2 Flow Rate FiO2 11/19/18 15:00 97.9 78 20 116/71 (86) 98 Room Air 97.9 Intake and Output 11/19/18 07:00 Intake Total 200 ml Balance 200 ml Intake Oral 200 ml # Voids 1 Physical Exam Abdomen: Normal bowel sounds Heart: Regular rate General: No acute distress Lungs: Clear to auscultation Assessment Assessment Problems Medical Problems: (1) Abnormal EKG Status: Acute (2) Syncope Status: Acute 1. Generalized weakness. Patient is feeling better at this time. Workup is in progress. 2. Syncope. Rhythm has been stable. EKG shows a sinus rhythm with incomplete right bundle branch block and ST segment changes anteriorly. It is not classic for Brugada syndrome. At this time will continue on monitoring. Echocardiogram pending. The patient will require outpatient follow-up. 3. Possible history of schizophrenia. Comment Review of Relevant I have reviewed the following items geovany (where applicable) has been applied. Labs Laboratory Tests Test 11/19/18 04:00 11/19/18 04:30 Thyroid Stimulating Hormone (TSH) 1.206 uIU/mL (0.358-3.74) Triglycerides Level 66 mg/dL (0-150) Cholesterol Level 224 mg/dL (0-200) LDL Cholesterol, Calculated 138 mg/dL (0-100) VLDL Cholesterol, Calculated 13 mg/dL (0-40) Non-HDL Cholesterol Calculated 151 mg/dL (0-129) HDL Cholesterol 73 mg/dL (40-60) Cholesterol/HDL Ratio 3.1 Laboratory Tests Test 11/19/18 04:00 11/19/18 04:30 Thyroid Stimulating Hormone (TSH) 1.206 uIU/mL (0.358-3.74) Triglycerides Level 66 mg/dL (0-150) Cholesterol Level 224 mg/dL (0-200) LDL Cholesterol, Calculated 138 mg/dL (0-100) VLDL Cholesterol, Calculated 13 mg/dL (0-40) Non-HDL Cholesterol Calculated 151 mg/dL (0-129) HDL Cholesterol 73 mg/dL (40-60) Cholesterol/HDL Ratio 3.1 Medications Current Medications Sodium Chloride 1,000 ml @ 1,000 mls/hr 1X ONCE IV Last administered on 11/17/18at 15:41; Start 11/17/18 at 15:00; Stop 11/17/18 at 15:59; Status DC Ondansetron HCl (Zofran) 4 mg PRN Q8HRS PRN IV NAUSEA/VOMITING; Start 11/17/18 at 16:30; Stop 11/18/18 at 16:29; Status DC Morphine Sulfate (Morphine Sulfate) 2 mg PRN Q2HR PRN IV PAIN; Start 11/17/18 at 16:30; Stop 11/18/18 at 16:29; Status DC Enoxaparin Sodium (Lovenox Per Pharmacy Prophylaxis Dosing) 1 each PRN DAILY PRN [facility] SEE COMMENTS; Start 11/17/18 at 19:15 Enoxaparin Sodium (Lovenox 40mg Syringe) 40 mg Q24H SQ Last administered on 11/18/18at 20:47; Start 11/17/18 at 21:00 Nicotine (Nicoderm Cq 21mg) 1 patch DAILY TD Last administered on 11/19/18at 09:06; Start 11/19/18 at 09:00 Vitals/I & O Vital Sign - Last 24 Hours 11/18/18 11/18/18 11/18/18 11/19/18 19:46 20:00 23:28 03:23 Temp 98.0 97.8 97.8 98.0 97.8 97.8 Pulse 65 64 57 Resp 20 20 20 B/P (MAP) 119/65 (83) 112/69 (83) 109/71 (84) Pulse Ox 98 99 99 O2 Delivery Room Air Room Air Room Air Room Air 11/19/18 11/19/18 11/19/18 11/19/18 07:00 08:00 11:00 15:00 Temp 97.8 98.2 97.9 97.8 98.2 97.9 Pulse 63 67 78 Resp 18 20 20 B/P (MAP) 108/70 (83) 125/67 (86) 116/71 (86) Pulse Ox 98 99 98 O2 Delivery Room Air Room Air Room Air Room Air Intake and Output 11/18/18 11/18/18 11/19/18 15:00 23:00 07:00 Intake Total 200 ml 0 ml 0 ml Balance 200 ml 0 ml 0 ml AMBER CORTEZ MD Nov 19, 2018 17:58
[2018-11-19] MEDS: ENOXAPARIN 40 MG/0.4 ML SYRINGE. SQ SCH (22:22)
[2018-11-20 03:22] VITALS: BP 112/66
[2018-11-20 07:33] VITALS: BP 122/75
--- NOTE | 2018-11-20 09:12 | NUR ---
NITZA consulted for mental health center info due to Schizophrenia dx, and non adherence with medication. Chart reviewed and discussed with RN. Pt lives at home with his brother Malachi: [phone]. Pt presented in the ER due to weakness and left arm numbness. Pt reported left leg weakness for last month. 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 Pt's brother is worried about pt's 30lbs weight loss this year and odd behaviors. NITZA phoned PAT team for assessment, evaluation and to connect pt with [facility]. PAT team will see pt today. NITZA will continue to follow.
[2018-11-20] MEDS: NICOTINE 21MG PATCH. TD SCH (09:45)
--- NOTE | 2018-11-20 10:49 | PDOC ---
PROGRESS NOTES History of Present Illness History of Present Illness VTE Prophylaxis Ordered VTE Prophylaxis Devices: Yes VTE Pharmacological Prophylaxi: No Assessment/Plan syncope on echo 11/20 The left ventricle is normal size. The left ventricular systolic function is normal and the ejection fraction is within normal range. The Ejection Fraction is 60-65%. There is no significant aortic valvular stenosis. Doppler and Color Flow revealed no significant aortic regurgitation. Doppler and Color Flow revealed no mitral valve regurgitation noted. Doppler and Color Flow revealed trace tricuspid regurgitation. The PA pressure was estimated at 23 mmHg. lethargy weakness withdrawn behavior history of schizophrenia abnormal EKG, likely early repol change. concern for Brugada syndrome, remains unlikely plan admit tele cardiology consult 27 min pt exam, chart review, > 50% of time spent with exam, chart review, pt care coordination Vitals Vitals Vital Signs Date Time Temp Pulse Resp B/P (MAP) Pulse Ox O2 Delivery O2 Flow Rate FiO2 11/20/18 08:00 Room Air 11/20/18 07:33 97.6 57 18 122/75 (91) 99 97.6 Physical Exam General: Alert, Oriented X3, Cooperative, No acute distress Heart: Regular rate, Normal S1 Lungs: Clear Abdomen: Normal bowel sounds, Soft Extremities: No clubbing, No cyanosis, No edema, Normal pulses Skin: No rashes Labs LABS EXAM: Two-dimensional and M-mode echocardiogram with Doppler and color Doppler. Other Information Quality : Average HR: 63bpm Rhythm : NSR INDICATION Syncope 2D DIMENSIONS RVDd 2.9 (2.9-3.5cm) Left Atrium(2D) 2.6 (1.6-4.0cm) IVSd 0.7 (0.7-1.1cm) Aortic Root(2D) 3.1 (2.0-3.7cm) LVDd 4.5 (3.9-5.9cm) LVOT Diameter 2.2 (1.8-2.4cm) PWd 0.9 (0.7-1.1cm) LVDs 2.7 (2.5-4.0cm) FS (%) 38.9 % SV 63.6 ml M-Mode DIMENSIONS Left Atrium(MM) 2.50 (2.5-4.0cm) Aortic Root 3.54 (2.2-3.7cm) Aortic Valve AoV Peak Aba. 133.6cm/s AoV VTI 23.1cm AO Peak GR. 7.1mmHg LVOT Peak Aba. 103.9cm/s AO Mean GR. 3mmHg ALESSANDRA (VMAX) 2.90cm2 ALESSANDRA (VTI) 2.80cm2 Mitral Valve MV E Velocity 85.8cm/s MV DECEL TIME 263ms MV A Velocity 44.8cm/s E/A Ratio 1.9 Pulmonary Valve PV Peak Velocity 108.9cm/s Tricuspid Valve TR P. Velocity 221cm/s RAP ESTIMATE 3mmHg TR Peak Gr. 20mmHg RVSP 23mmHg LEFT VENTRICLE The left ventricle is normal size. There is normal left ventricular wall thickness. The left ventricular systolic function is normal and the ejection fraction is within normal range. The Ejection Fraction is 60-65%. There is normal LV segmental wall motion. The left ventricular diastolic function and filling is normal for age. RIGHT VENTRICLE The right ventricle is normal size. There is normal right ventricular wall thi ckness. The right ventricular systolic function is normal. ATRIA The left atrium size is normal. The right atrium size is normal. The interatrial septum is intact with no evidence for an atrial septal defect or patent foramen ovale as noted on 2-D or Doppler imaging. AORTIC VALVE The aortic valve is normal in structure and function. The aortic valve is trileaflet. Doppler and Color Flow revealed no significant aortic regurgitation. There is no significant aortic valvular stenosis. There is no aortic valvular vegetation. MITRAL VALVE The mitral valve is normal in structure and function. There is no evidence of mitral valve prolapse. There is no mitral valve stenosis. Doppler and Color Flow revealed no mitral valve regurgitation noted. TRICUSPID VALVE The tricuspid valve is normal in structure and function. Doppler and Color Flow revealed trace tricuspid regurgitation. The PA pressure was estimated at 23 mmHg. There is no tricuspid valve prolapse or vegetation. There is no tricuspid valve stenosis. PULMONIC VALVE The pulmonic valve is not well visualized. GREAT VESSELS The aortic root is normal in size. The ascending aorta is normal in size. The IVC is normal in size and collapses >50% with inspiration. PERICARDIAL EFFUSION There is no evidence of significant pericardial effusion. Critical Notification Critical Value: No <Conclusion> The left ventricle is normal size. The left ventricular systolic function is normal and the ejection fraction is within normal range. The Ejection Fraction is 60-65%. There is no significant aortic valvular stenosis. Doppler and Color Flow revealed no significant aortic regurgitation. Doppler and Color Flow revealed no mitral valve regurgitation noted. Doppler and Color Flow revealed trace tricuspid regurgitation. The PA pressure was estimated at 23 mmHg. Signed by : Nima Villanueva MD Electronically Approved : 11/20/2018 13:04:04 Assessment and Plan Assessmemt and Plan Problems Medical Problems: (1) Abnormal EKG Status: Acute (2) Syncope Status: Acute Comment Review of Relevant I have reviewed the following items geovany (where applicable) has been applied. Labs Laboratory Tests Test 11/19/18 04:00 11/19/18 04:30 Thyroid Stimulating Hormone (TSH) 1.206 uIU/mL (0.358-3.74) Triglycerides Level 66 mg/dL (0-150) Cholesterol Level 224 mg/dL (0-200) LDL Cholesterol, Calculated 138 mg/dL (0-100) VLDL Cholesterol, Calculated 13 mg/dL (0-40) Non-HDL Cholesterol Calculated 151 mg/dL (0-129) HDL Cholesterol 73 mg/dL (40-60) Cholesterol/HDL Ratio 3.1 Medications Current Medications Sodium Chloride 1,000 ml @ 1,000 mls/hr 1X ONCE IV Last administered on 11/17/18at 15:41; Start 11/17/18 at 15:00; Stop 11/17/18 at 15:59; Status DC Ondansetron HCl (Zofran) 4 mg PRN Q8HRS PRN IV NAUSEA/VOMITING; Start 11/17/18 at 16:30; Stop 11/18/18 at 16:29; Status DC Morphine Sulfate (Morphine Sulfate) 2 mg PRN Q2HR PRN IV PAIN; Start 11/17/18 at 16:30; Stop 11/18/18 at 16:29; Status DC Enoxaparin Sodium (Lovenox Per Pharmacy Prophylaxis Dosing) 1 each PRN DAILY PRN MC SEE COMMENTS; Start 11/17/18 at 19:15 Enoxaparin Sodium (Lovenox 40mg Syringe) 40 mg Q24H SQ Last administered on 11/19/18at 22:22; Start 11/17/18 at 21:00 Nicotine (Nicoderm Cq 21mg) 1 patch DAILY TD Last administered on 11/20/18at 09:45; Start 11/19/18 at 09:00 Vitals/I & O Vital Sign - Last 24 Hours 10/6/19 10/6/19 10/6/19 10/6/19 11:00 15:00 19:42 19:43 Temp 98.2 97.9 98.3 98.2 97.9 98.3 Pulse 67 78 72 76 Resp 20 20 20 B/P (MAP) 125/67 (86) 116/71 (86) 122/65 (84) 118/71 (87) Pulse Ox 99 98 98 O2 Delivery Room Air Room Air Room Air 11/19/18 11/19/18 11/20/18 11/20/18 19:43 23:07 03:22 07:33 Temp 98.8 97.8 97.6 98.8 97.8 97.6 Pulse 82 74 60 57 Resp 18 18 B/P (MAP) 110/70 (83) 115/72 (86) 112/66 (81) 122/75 (91) Pulse Ox 97 99 99 O2 Delivery Room Air 20 Nasal Cannula 11/20/18 08:00 O2 Delivery Room Air Intake and Output 11/19/18 11/19/18 11/20/18 15:00 23:00 07:00 Intake Total 540 ml 300 ml 730 ml Balance 540 ml 300 ml 730 ml MARTHA RUSH MD Nov 20, 2018 10:49
[2018-11-20 11:00] VITALS: BP 122/69
--- NOTE | 2018-11-20 11:33 | NUR ---
SW following pt. Pt seen by PAT team and is provided with OP mental health appointment at [facility]. Pt's brother is also provided with this information. SW will be available as needed.
--- NOTE | 2018-11-20 11:43 | NUR ---
1115 Assumed care, alert, brother at bedside
--- NOTE | 2018-11-20 13:04 | CARD ---
MR#: [id number] Date of Study: 11/20/2018 Ordering Physician: AMBER VILLANUEVA, Referring Physician: AMBER VILLANUEVA, Tech: Eloina Freeman [facility] APPROVED REPORT EXAM: Two-dimensional and M-mode echocardiogram with Doppler and color Doppler. Other Information Quality : AverageHR: 63bpm Rhythm : NSR INDICATION Syncope 2D DIMENSIONS RVDd2.9 (2.9-3.5cm)Left Atrium(2D)2.6 (1.6-4.0cm) IVSd0.7 (0.7-1.1cm)Aortic Root(2D)3.1 (2.0-3.7cm) LVDd4.5 (3.9-5.9cm)LVOT Diameter2.2 (1.8-2.4cm) PWd0.9 (0.7-1.1cm)LVDs2.7 (2.5-4.0cm) FS (%) 38.9 %SV63.6 ml M-Mode DIMENSIONS Left Atrium(MM)2.50 (2.5-4.0cm)Aortic Root3.54 (2.2-3.7cm) Aortic Valve AoV Peak Aba.133.6cm/sAoV VTI23.1cm AO Peak GR.7.1mmHgLVOT Peak Aba.103.9cm/s AO Mean GR.3mmHgAVA (VMAX)2.90cm2 ALESSANDRA (VTI)2.80cm2 Mitral Valve MV E Ahgqhsrd44.8cm/sMV DECEL IMXE450vd MV A Ebposhqj46.8cm/sE/A Ratio1.9 Pulmonary Valve PV Peak Kiengyrd089.9cm/s Tricuspid Valve TR P. Tkpsisnz135wy/sRAP NJPNWGOO6jgGr TR Peak Gr.38mjJqNFHP42keBl LEFT VENTRICLE The left ventricle is normal size. There is normal left ventricular wall thickness. The left ventricu lar systolic function is normal and the ejection fraction is within normal range. The Ejection Fracti on is 60-65%. There is normal LV segmental wall motion. The left ventricular diastolic function and f illing is normal for age. RIGHT VENTRICLE The right ventricle is normal size. There is normal right ventricular wall thickness. The right ventr icular systolic function is normal. ATRIA The left atrium size is normal. The right atrium size is normal. The interatrial septum is intact wit h no evidence for an atrial septal defect or patent foramen ovale as noted on 2-D or Doppler imaging. AORTIC VALVE The aortic valve is normal in structure and function. The aortic valve is trileaflet. Doppler and Col or Flow revealed no significant aortic regurgitation. There is no significant aortic valvular stenosi s. There is no aortic valvular vegetation. MITRAL VALVE The mitral valve is normal in structure and function. There is no evidence of mitral valve prolapse. There is no mitral valve stenosis. Doppler and Color Flow revealed no mitral valve regurgitation note d. TRICUSPID VALVE The tricuspid valve is normal in structure and function. Doppler and Color Flow revealed trace tricus pid regurgitation. The PA pressure was estimated at 23 mmHg. There is no tricuspid valve prolapse or vegetation. There is no tricuspid valve stenosis. PULMONIC VALVE The pulmonic valve is not well visualized. GREAT VESSELS The aortic root is normal in size. The ascending aorta is normal in size. The IVC is normal in size a nd collapses >50% with inspiration. PERICARDIAL EFFUSION There is no evidence of significant pericardial effusion. Critical Notification Critical Value: No <Conclusion> The left ventricle is normal size. The left ventricular systolic function is normal and the ejection fraction is within normal range. The Ejection Fraction is 60-65%. There is no significant aortic valvular stenosis. Doppler and Color Flow revealed no significant aortic regurgitation. Doppler and Color Flow revealed no mitral valve regurgitation noted. Doppler and Color Flow revealed trace tricuspid regurgitation. The PA pressure was estimated at 23 mmHg. Signed by : Amber Villanueva MD Electronically Approved : 11/20/2018 13:04:04
[2018-11-20 15:15] VITALS: BP 106/73
--- NOTE | 2018-11-20 17:49 | PDOC ---
PROGRESS NOTES Subjective Subjective Patient seen and examined Objective Objective Vital Signs Date Time Temp Pulse Resp B/P (MAP) Pulse Ox O2 Delivery O2 Flow Rate FiO2 11/20/18 15:15 97.9 64 18 106/73 (84) 100 Nasal Cannula 97.9 Intake and Output 11/20/18 07:00 Intake Total 1570 ml Balance 1570 ml Intake Oral 1570 ml # Voids 4 # Bowel Movements 1 Physical Exam Abdomen: Normal bowel sounds Heart: Regular rate General: No acute distress Lungs: Clear to auscultation Assessment Assessment Problems Medical Problems: (1) Abnormal EKG Status: Acute (2) Syncope Status: Acute 1. Generalized weakness. The patient continued to slowly improve. 2. Syncope. Rhythm has been stable. EKG shows a sinus rhythm with incomplete right bundle branch block and ST segment changes anteriorly. It is not classic for Brugada syndrome. On monitor rhythm has been normal. Echocardiogram today shows normal systolic function and no significant valvular abnormalities. We'll follow-up as an outpatient. 3. Possible history of schizophrenia. Comment Review of Relevant I have reviewed the following items geovany (where applicable) has been applied. Labs Laboratory Tests Test 11/19/18 04:00 11/19/18 04:30 Thyroid Stimulating Hormone (TSH) 1.206 uIU/mL (0.358-3.74) Triglycerides Level 66 mg/dL (0-150) Cholesterol Level 224 mg/dL (0-200) LDL Cholesterol, Calculated 138 mg/dL (0-100) VLDL Cholesterol, Calculated 13 mg/dL (0-40) Non-HDL Cholesterol Calculated 151 mg/dL (0-129) HDL Cholesterol 73 mg/dL (40-60) Cholesterol/HDL Ratio 3.1 Medications Current Medications Sodium Chloride 1,000 ml @ 1,000 mls/hr 1X ONCE IV Last administered on 11/17/18at 15:41; Start 11/17/18 at 15:00; Stop 11/17/18 at 15:59; Status DC Ondansetron HCl (Zofran) 4 mg PRN Q8HRS PRN IV NAUSEA/VOMITING; Start 11/17/18 at 16:30; Stop 11/18/18 at 16:29; Status DC Morphine Sulfate (Morphine Sulfate) 2 mg PRN Q2HR PRN IV PAIN; Start 11/17/18 at 16:30; Stop 11/18/18 at 16:29; Status DC Enoxaparin Sodium (Lovenox Per Pharmacy Prophylaxis Dosing) 1 each PRN DAILY PRN MC SEE COMMENTS; Start 11/17/18 at 19:15 Enoxaparin Sodium (Lovenox 40mg Syringe) 40 mg Q24H SQ Last administered on 11/19/18at 22:22; Start 11/17/18 at 21:00 Nicotine (Nicoderm Cq 21mg) 1 patch DAILY TD Last administered on 11/20/18at 09:45; Start 11/19/18 at 09:00 Atorvastatin Calcium (Lipitor) 20 mg QHS PO ; Start 11/20/18 at 21:00 Vitals/I & O Vital Sign - Last 24 Hours 11/19/18 11/19/18 11/19/18 11/19/18 19:42 19:43 19:43 23:07 Temp 98.3 98.8 98.3 98.8 Pulse 72 76 82 74 Resp 20 18 B/P (MAP) 122/65 (84) 118/71 (87) 110/70 (83) 115/72 (86) Pulse Ox 98 97 O2 Delivery Room Air Room Air 11/20/18 11/20/18 11/20/18 11/20/18 03:22 07:33 08:00 11:00 Temp 97.8 97.6 97.9 97.8 97.6 97.9 Pulse 60 57 67 Resp 18 20 B/P (MAP) 112/66 (81) 122/75 (91) 122/69 (86) Pulse Ox 99 99 100 O2 Delivery 20 Nasal Cannula Room Air Nasal Cannula 11/20/18 15:15 Temp 97.9 97.9 Pulse 64 Resp 18 B/P (MAP) 106/73 (84) Pulse Ox 100 O2 Delivery Nasal Cannula Intake and Output 11/19/18 11/19/18 11/20/18 15:00 23:00 07:00 Intake Total 540 ml 300 ml 730 ml Balance 540 ml 300 ml 730 ml AMBER CORTEZ MD Nov 20, 2018 17:49
[2018-11-20 19:38] VITALS: BP 115/73
[2018-11-20] MEDS: ENOXAPARIN 40 MG/0.4 ML SYRINGE. SQ SCH (21:00)
[2018-11-20] MEDS ORDERED: ATORVASTATIN CALCIUM 20 MG TABLET PO SCH (21:00)
[2018-11-20 23:45] VITALS: BP 118/58
[2018-11-21 03:20] VITALS: BP 114/74
[2018-11-21 07:45] VITALS: BP 115/74
--- NOTE | 2018-11-21 07:45 | PDOC ---
PROGRESS NOTES History of Present Illness History of Present Illness VTE Prophylaxis Ordered VTE Prophylaxis Devices: Yes VTE Pharmacological Prophylaxi: No DISCHARGE DX syncope on echo 11/20 The left ventricle is normal size. The left ventricular systolic function is normal and the ejection fraction is within normal range. The Ejection Fraction is 60-65%. There is no significant aortic valvular stenosis. Doppler and Color Flow revealed no significant aortic regurgitation. Doppler and Color Flow revealed no mitral valve regurgitation noted. Doppler and Color Flow revealed trace tricuspid regurgitation. The PA pressure was estimated at 23 mmHg. lethargy weakness withdrawn behavior history of schizophrenia abnormal EKG, likely early repol change. concern for Brugada syndrome, remains unlikely plan admit tele cardiology consult D/C 11/21 25 min pt exam, chart review D/C PLANNING , > 50% of time spent with exam, chart review, pt care coordination Vitals Vitals Vital Signs Date Time Temp Pulse Resp B/P (MAP) Pulse Ox O2 Delivery O2 Flow Rate FiO2 11/21/18 03:20 98.4 57 20 114/74 (87) 97 Room Air 98.4 Physical Exam General: Alert, Oriented X3, Cooperative, No acute distress Heart: Regular rate, Normal S1 Lungs: Clear Abdomen: Normal bowel sounds Extremities: No clubbing, No cyanosis, No edema, Normal pulses Skin: No rashes Assessment and Plan Assessmemt and Plan Problems Medical Problems: (1) Abnormal EKG Status: Acute (2) Syncope Status: Acute Comment Review of Relevant I have reviewed the following items geovany (where applicable) has been applied. Medications Current Medications Sodium Chloride 1,000 ml @ 1,000 mls/hr 1X ONCE IV Last administered on 11/17/18at 15:41; Start 11/17/18 at 15:00; Stop 11/17/18 at 15:59; Status DC Ondansetron HCl (Zofran) 4 mg PRN Q8HRS PRN IV NAUSEA/VOMITING; Start 11/17/18 at 16:30; Stop 11/18/18 at 16:29; Status DC Morphine Sulfate (Morphine Sulfate) 2 mg PRN Q2HR PRN IV PAIN; Start 11/17/18 at 16:30; Stop 11/18/18 at 16:29; Status DC Enoxaparin Sodium (Lovenox Per Pharmacy Prophylaxis Dosing) 1 each PRN DAILY PRN MC SEE COMMENTS; Start 11/17/18 at 19:15 Enoxaparin Sodium (Lovenox 40mg Syringe) 40 mg Q24H SQ Last administered on 11/19/18at 22:22; Start 11/17/18 at 21:00 Nicotine (Nicoderm Cq 21mg) 1 patch DAILY TD Last administered on 11/20/18at 09:45; Start 11/19/18 at 09:00 Atorvastatin Calcium (Lipitor) 20 mg QHS PO Last administered on 11/20/18at 21:37; Start 11/20/18 at 21:00 Vitals/I & O Vital Sign - Last 24 Hours 11/20/18 11/20/18 11/20/18 11/20/18 08:00 11:00 15:15 19:38 Temp 97.9 97.9 97.9 97.9 97.9 97.9 Pulse 67 64 66 Resp 20 18 18 B/P (MAP) 122/69 (86) 106/73 (84) 115/73 (87) Pulse Ox 100 100 98 O2 Delivery Room Air Nasal Cannula Nasal Cannula Room Air 11/20/18 11/20/18 11/21/18 20:10 23:45 03:20 Temp 98.4 98.4 98.4 98.4 Pulse 63 57 Resp 18 20 B/P (MAP) 118/58 (78) 114/74 (87) Pulse Ox 98 97 O2 Delivery Room Air Room Air Room Air Intake and Output 11/20/18 11/20/18 11/21/18 15:00 23:00 07:00 Intake Total 300 ml 1570 ml 700 ml Balance 300 ml 1570 ml 700 ml MARTHA RUSH MD Nov 21, 2018 07:45
[2018-11-21] MEDS: NICOTINE 21MG PATCH. TD SCH (08:49)
[2018-11-21 11:01] VITALS: BP 119/70
--- NOTE | 2018-11-21 12:43 | PDOC3 ---
Discharge Summary Date of Admission: Nov 17, 2018 Date of Discharge: Nov 21, 2018 Follow-Up: 3-5 days Admitting Diagnosis comment: DISCHARGE DX syncope on echo 11/20 The left ventricle is normal size. The left ventricular systolic function is normal and the ejection fraction is within normal range. The Ejection Fraction is 60-65%. There is no significant aortic valvular stenosis. Doppler and Color Flow revealed no significant aortic regurgitation. Doppler and Color Flow revealed no mitral valve regurgitation noted. Doppler and Color Flow revealed trace tricuspid regurgitation. The PA pressure was estimated at 23 mmHg. lethargy weakness withdrawn behavior history of schizophrenia abnormal EKG, likely early repol change. concern for Brugada syndrome, remains unlikely plan admit tele cardiology consult WILL SEE IN FOLLOW UP SOON D/C 11/21 25 min pt exam, chart review D/C PLANNING , > 50% of time spent with exam, chart review, pt care coordination Vitals Vitals Vital Signs Date Time Temp Pulse Resp B/P (MAP) Pulse Ox O2 Delivery O2 Flow Rate FiO2 11/21/18 03:20 98.4 57 20 114/74 (87) 97 Room Air 98.4 Physical Exam General: Alert, Oriented X3, Cooperative, No acute distress Heart: Regular rate, Normal S1 Lungs: Clear Abdomen: Normal bowel sounds Extremities: No clubbing, No cyanosis, No edema, Normal pulses Skin: No rashes FINAL DIAGNOSIS Problems Medical Problems: (1) Abnormal EKG Status: Acute (2) Syncope Status: Acute Brief Hospital Course Mr. Bashir is a 37 old [sex] who presented with [SYNCOPE ] CONDITION AT DISCHARGE: Improved Discharge Medications Current Medications Sodium Chloride 1,000 ml @ 1,000 mls/hr 1X ONCE IV Last administered on 11/17/18at 15:41; Start 11/17/18 at 15:00; Stop 11/17/18 at 15:59; Status DC Ondansetron HCl (Zofran) 4 mg PRN Q8HRS PRN IV NAUSEA/VOMITING; Start 11/17/18 at 16:30; Stop 11/18/18 at 16:29; Status DC Morphine Sulfate (Morphine Sulfate) 2 mg PRN Q2HR PRN IV PAIN; Start 11/17/18 at 16:30; Stop 11/18/18 at 16:29; Status DC Enoxaparin Sodium (Lovenox Per Pharmacy Prophylaxis Dosing) 1 each PRN DAILY PRN MC SEE COMMENTS; Start 11/17/18 at 19:15 Enoxaparin Sodium (Lovenox 40mg Syringe) 40 mg Q24H SQ Last administered on 11/19/18at 22:22; Start 11/17/18 at 21:00 Nicotine (Nicoderm Cq 21mg) 1 patch DAILY TD Last administered on 11/21/18at 08:49; Start 11/19/18 at 09:00 Atorvastatin Calcium (Lipitor) 20 mg QHS PO Last administered on 11/20/18at 21:37; Start 11/20/18 at 21:00 Vital Signs Vital Signs Date Time Temp Pulse Resp B/P (MAP) Pulse Ox O2 Delivery O2 Flow Rate FiO2 11/21/18 11:01 98.2 72 18 119/70 (86) 98 Room Air 98.2 Allergies Allergies Coded Allergies Type Severity Reaction Last Updated Verified No Known Drug Allergies 11/17/18 No Disposition/Orders: D/C to Home Patient Instructions D/C PLANNING 25 MIN MARTHA RUSH MD Nov 21, 2018 12:43
[2018-11-21] MEDS ORDERED: ATOR20TA58 PO (12:44)
--- NOTE | 2018-11-21 12:44 | DISCH ---
DISCHARGE INSTRUCTIONS Condition on Discharge Condition on Discharge: Stable Activity After Discharge Activity Instructions for Disc: Activity as tolerated Lifting Instructions after Dis: No heavy lifting, No pulling or pushing Driving Instructions after Dis: Do not drive, Do not drive today Diet after Discharge Diet after Discharge: Cardiac Checks after Discharge Checks after discharge: Check blood press - daily Contacting the D[facility] after DC Call your doctor for: If your condition worsens MARTHA RUSH MD Nov 21, 2018 12:44
--- NOTE | 2018-11-21 15:13 | NUR ---
Discharge Note: MAICO S[facility] Discharge instructions and discharge home medications reviewed with Patient and a copy given. All questions have been answered and understanding verbalized. The following instructions and handouts were given: follow up instructions Discontinued lines and drains: 20 gauge left ac, tip intact. patient tolerated well. Patient discharged to home with self care via brother.
== END 2018-11-21 14:50 | disposition home or self-care (01) | DRG 312 ==
LOC: ER 14:36 → 6 SOUTH 16:25
PROVIDERS: ADMIT Internal Medicine; ATTEND Internal Medicine
DX: R55 Syncope and collapse (principal); F20.9 Schizophrenia, unspecified; I10 Essential (primary) hypertension; I45.10 Unspecified right bundle-branch block; Z82.49 Family history of ischemic heart disease and other diseases of the circulatory system; Z79.899 Other long term (current) drug therapy; I49.8 Other specified cardiac arrhythmias
CPT/HCPCS: 36415; 71046; 80053; 80061; 82550; 83735; 84443; 84484; 85025; 93005; 93306; 96360; J1650; J7030; 99285-25; G0378